=== PATIENT | male | born 1975 | race Caucasian/White ===

== ENCOUNTER 2020-10-20 14:27 | Emergency (ER) | payer BC ==
[~2020-10-20] VITALS: Ht 190.5 cm; Wt 99.8 kg
[2020-10-20 14:35] VITALS: BP_SYST 132
--- NOTE | 2020-10-20 14:35 | NUR ---
Placed in room [address] monitor, blood pressure machine and pulse oximeter. To gown for exam. Side rails up.
--- NOTE | 2020-10-20 14:48 | NUR ---
ER at bedside examining patient.
--- NOTE | 2020-10-20 14:51 | NUR ---
PT CAME TO ER FOR C/C OF RECTAL BLEEDING X 4-5 DAYS. 3/10 PAIN.PT SATTES IT HAS HAPPENED BEFORE BUT NEVER FOR THIS LONG. +WEAKNESS TODAY.
--- NOTE | 2020-10-20 15:05 | NUR ---
Patient transported to radiology via WHEELCHAIR, accompanied by TECH.
[2020-10-20 16:14] LABS: PROTHROMBIN TIME 10.3 SECS (9.5-12.5)
[2020-10-20 16:16] LABS: BASOPHILS # (AUTO) 0.1 K/uL (0.0-0.2); BASOPHILS % (AUTO) 0.8 % (0.0-2.0); CALCIUM 8.9 mg/dL (8.4-11.0); CREATININE 0.96 mg/dL (0.55-1.30); EOSINOPHILS # (AUTO) 0.1 K/uL (0.0-0.4); EOSINOPHILS % (AUTO) 1.6 % (0.0-4.0); HEMATOCRIT 42.3 % (36-54); HEMOGLOBIN 14.4 g/dL (14.0-18.0); LYMPHOCYTES # (AUTO) 1.5 K/uL (1.0-5.5); LYMPHOCYTES % (AUTO) 19.4 % (20.5-51.5); MEAN CORPUSCULAR HEMOGLOBIN 31 pg (27-31); MEAN CORPUSCULAR HGB CONC 34 % (32-36); MEAN CORPUSCULAR VOLUME 90 fL (79.0-98.0); MONOCYTES # (AUTO) 0.6 K/uL (0.0-1.0); MONOCYTES % (AUTO) 7.5 % (1.7-9.3); NEUTROPHILS # (AUTO) 5.3 K/uL (1.8-7.7); NEUTROPHILS % (AUTO) 70.7 % (40.0-70.0); PLATELET COUNT (AUTO) 170 K/uL (130-430); POTASSIUM 3.6 mmol/L (3.5-5.1); RED BLOOD CELL COUNT(AUTO) 4.71 MIL/uL (4.2-6.2); RED CELL DISTRIBUTION WIDTH 13.6 % (9.0-15.0); WHITE BLOOD COUNT (AUTO) 7.5 K/uL (4.8-10.8)
[2020-10-20 16:23] LABS: ALBUMIN 4.1 g/dL (3.4-4.8); TOTAL BILIRUBIN 0.5 mg/dL (0.0-1.0)
[2020-10-20 16:55] VITALS: BP_SYST 118
--- NOTE | 2020-10-20 16:55 | NUR ---
Patient given written and verbal discharge instructions and verbalizes understanding. ER MD discussed with patient the results and treatment provided. Patient in stable condition. ID arm band removed. No prescriptions given. Patient educated on pain management and to follow up with PMD. Pain Scale 0. Opportunity for questions provided and answered. Medication side effect fact sheet provided.
== END 2020-10-20 16:55 | disposition home or self-care (01) ==
LOC: SED 14:27
DX: K62.5 Hemorrhage of anus and rectum (principal); K21.9 Gastro-esophageal reflux disease without esophagitis
CPT/HCPCS: 36415; 76376; 80053; 82150; 83690; 85025; 85610-TC; 85730-TC; 86886; 86900; 86901; 99284

== ENCOUNTER 2021-12-04 18:36 | Emergency (ER) | payer SELFPAY ==
[~2021-12-04] VITALS: Ht 190.5 cm; Wt 106.1 kg
[2021-12-04 19:26] VITALS: BP_SYST 127
--- NOTE | 2021-12-04 19:44 | NUR ---
Sustain laceration to lt index finger about 0.5 cm while cutting cilantro at home. patient stated that his tdap is up to date. bleeding controlled at this time. denies past medical history.
[2021-12-04] MEDS ORDERED: LIDOCAINE 1% 10 MG/ML, 20 ML MDV INJ ONE (21:15)
[2021-12-04] MEDS ORDERED: BACITRACIN 1 GM OINT TP ONE (21:15)
[2021-12-04] MEDS ORDERED: LIDOCAINE 1%, 20 ML MDV 20 ML ONE (21:20)
--- NOTE | 2021-12-04 21:20 | NUR ---
Patient ambulatory to chair 1 for evaluationand treatment
--- NOTE | 2021-12-04 21:30 | NUR ---
Repair of laceration done by Dr Vincent, sustained 1 stitch
[2021-12-04 21:45] VITALS: BP_SYST 125
--- NOTE | 2021-12-04 21:54 | NUR ---
Dressed wound w. Bacitracin, non-adherent dressing, stretch gauze, & tubular gauze.
--- NOTE | 2021-12-04 22:02 | NUR ---
DC PT HOME AAOX4, NO SOB NOTED AND NOT IN ANY DISTRESS. DC INSTRUCTION WERE GIVEN TO PT. HEVERBALIZED UNDERSTADNING
== END 2021-12-04 22:02 | disposition home or self-care (01) ==
LOC: SED 18:36
DX: S61.211A Laceration without foreign body of left index finger without damage to nail, initial encounter (principal); K21.9 Gastro-esophageal reflux disease without esophagitis; Z79.899 Other long term (current) drug therapy; W26.0XXA Contact with knife, initial encounter; Y93.89 Activity, other specified; Y92.89 Other specified places as the place of occurrence of the external cause; Y99.8 Other external cause status
CPT/HCPCS: 99282; 12002; J2001